=== PATIENT | male | born 1965 | race Two or more races ===

== ENCOUNTER 2024-03-29 13:08 | Emergency (ER) | payer OTHER ==
[~2024-03-29] VITALS: Ht 167.6 cm; Wt 73.5 kg
[2024-03-29 13:54] VITALS: BP 160/100; O2SAT 100
[2024-03-29] MEDS ORDERED: METFORMIN HCL500 M3 PO (13:58)
[2024-03-29] MEDS ORDERED: PLAVIX75 MG PO (13:58)
[2024-03-29] MEDS ORDERED: CHILDREN'S ASPI81 MG PO (13:59)
[2024-03-29] MEDS ORDERED: LIPITOR80 MG PO (13:59)
[2024-03-29] MEDS ORDERED: 0.9 % SODIUM CHLORIDE 1,000 ML IV SCH (14:44)
[2024-03-29] MEDS ORDERED: ONDANSETRON HCL 2 MG/ML VIAL IV STA (14:45)
[2024-03-29 15:50] LABS: HEMATOCRIT 43.8 % (39.0-48.0); HEMOGLOBIN 15.2 g/dL (13-16.00); MEAN CORPUSCULAR HEMOGLOBIN 30.9 pg (27.00-32.0); MEAN CORPUSCULAR HGB CONC 34.7 g/dl (32.0-36.0); PLATELET COUNT 277 K/uL (150-450); RED BLOOD COUNT 4.92 M/uL (4.00-6.00); RED CELL DISTRIBUTION WIDTH 13.3 % (11.5-14.5)
[2024-03-29 15:53] LABS: PH,URINE 7.5 (5.0-8.0); URINE APPEARANCE Clear; URINE BILIRRUBIN Negative (NEGATIVE); URINE COLOR Yellow; URINE KETONE 15 (NEGATIVE); URINE LEUKOCYTE Negative; URINE NITRATE Negative; URINE PROTEIN 30 (NEGATIVE); URINE UROBILINOGEN 0.2 E.U./dl
[2024-03-29 15:55] LABS: CALCIUM 9.6 mg/dL (8.5-10.1); CREATININE SERUM 1.24 mg/dL (0.70-1.30); GFR 59.88; POTASSIUM 4.89 mEq/L (3.5-5.1)
[2024-03-29 15:56] LABS: URINE RBC 19.5 uL (0.0-20.8)
[2024-03-29 15:58] LABS: URINE BACTERIA 2.5 uL (0.0-1933); URINE CAST 0.15 uL (0.0-1.40); URINE EPITHELIAL CELLS 0.3 uL (0.0-38.8); URINE GLUCOSE 100 MG/DL (NEGATIVE); URINE WBC 0.9 uL (0.0-23.2)
[2024-03-29 15:59] LABS: URINE BLOOD TRACE
[2024-03-29] MEDS ORDERED: CEFTRIAXONE SODIUM 1,000 MG VIAL IM ONE (19:30)
[2024-03-29] MEDS ORDERED: CIPRO500 MG PO (19:39)
[2024-03-29] MEDS ORDERED: KETO10TA2 PO (19:39)
[2024-03-29] MEDS ORDERED: PEPCID AC20 MG PO (19:39)
[2024-03-29] MEDS ORDERED: ZOFRAN8 MG PO (19:39)
[2024-03-29] MEDS ORDERED: TAMS0.4C PO (19:40)
== END 2024-03-29 20:02 | disposition home or self-care (01) ==
LOC: ER 13:09
PROVIDERS: Emergency Medicine
DX: K29.70 Gastritis, unspecified, without bleeding (principal); N20.0 Calculus of kidney